=== PATIENT | female | born 1985 | race Caucasian/White ===

== ENCOUNTER 2023-12-09 05:51 | Emergency (ER) | payer SELFPAY ==
[~2023-12-09] VITALS: Ht 167.6 cm; Wt 104.3 kg
[2023-12-09 05:58] VITALS: BP_SYST 126; PULSE 90; RESP 20; TEMP 97.9; O2SAT 100
[2023-12-09] MEDS: NACL 0.9% 1,000 ML IV ONE (06:25)
[2023-12-09] MEDS: KETOROLAC TROMETHAMINE 30 MG VIAL IVP ONE (06:26)
[2023-12-09 07:01] LABS: CLARITY/URINE CLOUDY (CLEAR); COLOR,URINE BROWN (YELLOW); GLUCOSE,URINE NEGATIVE (NEGATIVE); KETONES,URINE NEGATIVE (NEGATIVE)
[2023-12-09 07:02] LABS: BILIRUBIN,URINE 3+ (NEGATIVE); BLOOD, URINE 3+ (NEGATIVE); LEUKOCYTE ESTERASE ,URINE NEGATIVE (NEGATIVE); NITRITE, URINE NEGATIVE (NEGATIVE)
[2023-12-09 07:08] LABS: RBC,URINE 50-80 /HPF (0-3); WBC,URINE 0-3 /HPF (0-3)
[2023-12-09 07:09] LABS: BACTERIA,URINE FEW /HPF (None Seen); MUCUS,URINE 1+ /LPF (None Seen)
[2023-12-09] MEDS ORDERED: NAPR-688 PO (07:14)
[2023-12-09] MEDS ORDERED: HYDR-3917 PO (07:14)
[2023-12-09 07:30] VITALS: BP_SYST 126; PULSE 90; RESP 20; TEMP 97.9; O2SAT 100
== END 2023-12-09 07:28 | disposition home or self-care (01) ==
LOC: SED 05:51
DX: N23 Unspecified renal colic (principal); R30.0 Dysuria; Z79.899 Other long term (current) drug therapy
CPT/HCPCS: 99283; 96374; 96361; 81001; 87086; 81025; J1885; J7030; 81000; 81015